=== PATIENT | male | born 1980 | race African-American/Black ===

== ENCOUNTER 2021-07-12 20:07 | Emergency (ER) | payer OTHER ==
[2021-07-12] MEDS ORDERED: Morphine 4 MG/ML VIAL ONE (20:41)
[2021-07-12] MEDS ORDERED: Dexamethasone 10 MG/ML VIAL ONE (20:41)
[2021-07-12] MEDS ORDERED: Ketorolac Tromethamine 30 MG/ML VIAL ONE (20:42)
[2021-07-12] MEDS ORDERED: Diazepam 5 MG TAB ONE (20:42)
[2021-07-12] MEDS ORDERED: Morphine 10 MG/ML VIAL ONE (20:47)
== END 2021-07-12 21:17 | disposition home or self-care (01) ==
LOC: CSHERS 20:07
DX: M54.41 Lumbago with sciatica, right side (principal); I10 Essential (primary) hypertension; E78.5 Hyperlipidemia, unspecified; J45.909 Unspecified asthma, uncomplicated; M19.90 Unspecified osteoarthritis, unspecified site; G56.00 Carpal tunnel syndrome, unspecified upper limb; Z79.899 Other long term (current) drug therapy
CPT/HCPCS: 96372; 99283; J1100; J1885; J2270